=== PATIENT | female | born 1955 | race Caucasian/White ===

== ENCOUNTER 2016-09-12 09:45 | Inpatient (IN) | payer BC ==
[~2016-09-12] VITALS: Ht 162.6 cm; Wt 113.1 kg
[2016-09-22] MEDS ORDERED: ESTR42.5V VAGINAL (08:49)
[2016-09-22] MEDS ORDERED: OMEP20TA PO (08:49)
[2016-09-22] MEDS ORDERED: FLUT1SPR22 NASAL (08:49)
[2016-09-22] MEDS ORDERED: PYRI100T PO (08:49)
[2016-09-22] MEDS ORDERED: HYDR-3516 PO (08:49)
[2016-09-22] MEDS ORDERED: FERR1TAB6 PO (08:49)
[2016-09-22] MEDS ORDERED: HYDR200T3 PO (08:49)
--- NOTE | 2016-09-26 09:14 | MH ---
cc: ROBINA DOUGLASS DATE OF ADMISSION: 09/26/2016 ADMISSION DIAGNOSIS Right knee osteoarthritis. HISTORY This is a 61-year-old female with significant right knee pain. Investigative studies show evidence of moderate to extensive arthritis of the right knee. Despite conservative care, the patient is painful and symptomatic. She presents for surgical treatment. PAST MEDICAL HISTORY, SOCIAL HISTORY, FAMILY HISTORY, REVIEW OF SYSTEMS See attached notes. PHYSICAL EXAMINATION General: Average built female in moderate distress with her right knee. HEENT: Normocephalic, atraumatic. Pupils equal, round, reactive to light and accommodation. Extraocular motions intact. Neck: Supple. Chest: Clear. Heart: Regular rate and rhythm. Abdomen: Soft, nontender with normoactive bowel sounds. Musculoskeletal: Examination shows right knee pain with range of motion. Varus deformity. Crepitus with range of motion. Neurologic and Vascular Examination: Within normal limits. IMPRESSION Osteoarthritis of the right knee. PLAN Right total knee replacement arthroplasty. CONSENT There are risks with surgery including infection, bleeding, loss of motion, continued pain, need for further surgery, neurologic and vascular injury. The patient understands these issues and wishes to press on with the surgery as outlined above. MD SANDIE Roberts/TREVOR /10:53 PM /9:12 AM
[2016-09-26 10:35] VITALS: BP 137/87; PULSE 75; RESP 18; TEMP 98.9; O2SAT 96
[2016-09-26] MEDS ORDERED: LACTATED RINGER'S 1000 ML IV SCH (11:00)
[2016-09-26] MEDS: SODIUM CHLORID 0.9% 500 ML IV SCH ×2 (11:00→20:35)
[2016-09-26] MEDS ORDERED: METOPROLOL TARTRATE 25 MG TAB PO PRN (11:15)
[2016-09-26] MEDS ORDERED: VANCOMYCIN 1000 MG/NS 250 ML (for <70 kg) IV SCH ×2 (11:15)
[2016-09-26] MEDS ORDERED: ceFAZolin 2 GM PREMIX 50 ML IV SCH (11:15)
[2016-09-26] MEDS: POVIDONE IODINE 7.5% SCRUB 118 ML BOTTLE TOP SCH (11:15)
[2016-09-26] MEDS ORDERED: INSULIN HUMAN REGULAR 1,000 UNITS/10 ML VIAL SQ PRN (11:15)
[2016-09-26] MEDS ORDERED: MIDAZOLAM HCL 5 MG/5 ML VIAL ONE (12:06)
[2016-09-26] MEDS ORDERED: GENTAMICIN SULFATE 80 MG/2 ML VIAL ONE (12:37)
[2016-09-26] MEDS ORDERED: BUPIVACAINE HCL PF 0.5% 30 ML VIAL NB ONE (12:42)
[2016-09-26] MEDS ORDERED: DEXAMETHASONE SOD PHOS PF 10 MG/ML VIAL IV ONE (12:42)
[2016-09-26] MEDS ORDERED: ACETAMINOPHEN 1000 MG/100 ML VIAL IV ONE (13:36)
[2016-09-26] MEDS ORDERED: FAMOTIDINE 20 MG/2 ML VIAL ONE (13:37)
[2016-09-26] MEDS ORDERED: fentaNYL CITRATE 250 MCG/5 ML AMP ONE ×3 (13:37→15:37)
[2016-09-26] MEDS ORDERED: HYDROmorphone HCL PF 2 MG/ML VIAL ONE ×3 (13:37→15:37)
[2016-09-26] MEDS: SODIUM CHLORIDE 0.9% IV SCH (14:13)
[2016-09-26] MEDS: TRANEXAMIC ACID IV SCH (14:13)
[2016-09-26] MEDS ORDERED: NEOSTIGMINE 3 MG/3 ML SYR IV ONE (15:10)
[2016-09-26] MEDS ORDERED: PROPOFOL 200 MG/20 ML AMP IV ONE (15:10)
[2016-09-26] MEDS ORDERED: ONDANSETRON HCL 4 MG/2 ML VIAL IV PUSH ONE (15:10)
[2016-09-26] MEDS ORDERED: LACTATED RINGER'S 1000 ML INJ 1,000 ML IV ONE (15:10)
[2016-09-26] MEDS: EXPAREL PERI-ARTICULAR INJECTION (TOTAL VOL. 60 ML) P-ARTICULR SCH ×2 (15:18)
[2016-09-26] MEDS ORDERED: methylPREDNISolone SOD SUCC 125 MG/2 ML VIAL ONE (16:09)
--- NOTE | 2016-09-26 16:26 | PD.OP ---
cc: Jose Manuel Paulino MD Operative Report Date of Surgery: Sep 26, 2016 Preoperative Diagnosis: Osteoarthritis right knee, severe. Valgus deformity right knee Postoperative Diagnosis: Same Procedure: Right total knee replacement arthroplasty Anesthesia: Gen. Surgeon: Jose Manuel Paulino Associate Sales Representative(s): CHARLES Liu Operation and Findings: EBL: 150 cc INDICATION: This patient presents with long-standing arthritis of the knee. This patient also has a significant valgus deformity to the right knee. Attachment record documents conservative measures. The patient now presents for surgical treatment. NOTE: Leigha Liu PA-C was present for the entire surgical procedure as my certified ophthalmic assistant. In my medical opinion her skill and care was necessary for proper management of this patient. TOURNIQUET TIME: 62 minutes COMPANY: [employer] FEMUR: Size 3, cruciate retaining TIBIA: Size 3, fixed bearing PATELLA: 35 mm POLYETHYLENE INSERT: 9 mm PROCEDURE: This patient was brought the operating room and anesthetized in the supine position. The patient was positioned supine on the table. The tourniquet was placed about the thigh, and the leg was scrubbed with alcohol followed by Hibiclens followed by ChloraPrep and draped sterilely. A timeout was done, and antibiotics were given. After exsanguination the tourniquet was inflated to 250 mmHg. An anterior incision was made and a median parapatellar arthrotomy was performed. The patella was released laterally and subluxed allowing freehand cut of the patella which was then sized. A metal cap was placed over the exposed patellar surface for protection. A pilot boat operator hole was placed in the distal femur allowing a 4 valgus cut removing 10 mm from the distal femur. Anterior posterior and chamfer cuts were made. The posterior stabilize osteotomy was made. The attention was directed to the tibia. Retractors were positioned. The external alignment guide was used allowing the lateral tibia to be used as referencing guide and cut utilizing an oscillating saw taking care to avoid any injury to the surrounding soft tissues. This was sized properly. Trial reduction showed that the insert fit nicely. The patient had range of motion extension 0 flexion 120. A medial release was not necessary. We and obtaining a partial lateral release with high crusting of the iliotibial band and a partial release of the LCL. The bony surfaces prepared. On the back table 2 packets of methylmethacrylate were mixed. The components were cemented. Excess cement was removed. The tourniquet let down and hemostasis was controlled. The final plastic insert was inserted. Range of motion was the same as previously noted. A drain was brought through a separate stab incision. The arthrotomy was repaired with interrupted #1 Vicryl suture, subcutaneous tissue 2-0 Vicryl suture and skin with metallic miguel A sterile dressing was applied. Sponge counts, needle counts and instrument counts were all correct. The patient tolerated procedure well and was taken to recovery in satisfactory condition. FINDINGS: This patient had a moderate to severe fixed valgus deformity. The correction was satisfactory without a posterior stabilized component. Overall stability was felt be very good. Motion was very satisfactory. Jose Manuel Paulino MD Sep 26, 2016 16:26
[2016-09-26] MEDS ORDERED: MORPHINE SULFATE 30 MG/30 ML PCA IV SCH (16:30)
[2016-09-26] MEDS ORDERED: SODIUM CHLORIDE 0.9% FLUSH 5 ML FLUSH IVF PRN (16:30)
[2016-09-26] MEDS ORDERED: NALOXONE HCL 0.4 MG/ML AMP IV PRN (16:30)
[2016-09-26] MEDS ORDERED: ALUMINUM/MAGNESIUM/SIMETH 30 ML CUP PO PRN (16:30)
[2016-09-26] MEDS ORDERED: MISCELLANEOUS NURSING INFORMATION XX PRN (16:30)
[2016-09-26] MEDS ORDERED: FLUTICASONE PROPIONATE 50 MCG/ACT 16 GM NASAL SPRAY NASAL PRN (16:30)
[2016-09-26] MEDS ORDERED: MORPHINE SULFATE 8 MG/ML INJ IV PUSH PRN (16:30)
[2016-09-26] MEDS ORDERED: TEMAZEPAM 15 MG CAP PO PRN (16:30)
[2016-09-26] MEDS ORDERED: MAGNESIUM HYDROXIDE SUSP 30 ML CUP PO PRN (16:30)
[2016-09-26] MEDS ORDERED: ONDANSETRON HCL 4 MG/2 ML VIAL IVP PRN (16:30)
[2016-09-26] MEDS ORDERED: BISACODYL 10 MG SUPP PR PRN (16:30)
[2016-09-26] MEDS ORDERED: ACETAMINOPHEN/HYDROcodone 325 MG/7.5 MG TAB PO PRN (16:30)
[2016-09-26] MEDS ORDERED: Post-op Orders (for Pharmacy) MISC XX ONE (16:30)
[2016-09-26] MEDS ORDERED: HYDR-3580 PO (16:34)
[2016-09-26] MEDS ORDERED: XARE10TA PO (16:34)
[2016-09-26] MEDS ORDERED: *morphine SULFATE 8 MG/ML PERIprocedure ONLY ONE ×3 (16:55→17:11)
[2016-09-26] MEDS: LACTATED RINGER'S 1000 ML INJ 1,000 ML IV SCH ×2 (17:05→20:40)
[2016-09-26] MEDS ORDERED: DO NOT ADM ANY ANTICOAGULANT DRUGS XX PRN (17:15)
[2016-09-26] MEDS ORDERED: *HYDROmorphone PF 1 MG VIAL PERIprocedural Use ONLY ONE (17:17)
--- NOTE | 2016-09-26 17:37 | RADRPT ---
EXAM DATE/TIME: 09/26/2016 16:58 [facility] COMPARISON: No previous studies available for comparison. INDICATIONS : Right knee replacement. MEDICAL HISTORY : Gastroesophageal reflux disease. SURGICAL HISTORY : None. ENCOUNTER: Initial ACUITY: 1 day PAIN SCORE: 6/10 LOCATION: Right entire knee. FINDINGS: Two view examination of the right knee demonstrates a total knee arthroplasty. The components are wally ropriately positioned without fracture. Suprapatellar drain is in place.. CONCLUSION: Appropriate postoperative appearance of the right knee status post total arthroplasty. Sanket Jewell MD on September 26, 2016 at 17:35 Board Certified Radiologist. This report was verified electronically.
[2016-09-26 20:16] VITALS: BP 116/55; PULSE 70; RESP 20; TEMP 95.7; O2SAT 93
[2016-09-26] MEDS: SODIUM CHLORIDE 0.9% FLUSH 5 ML FLUSH IVF SCH (20:41)
[2016-09-26] MEDS: PCA - TOTAL MG MORPHINE DELIVERED PER SHIFT SCH (22:00)
[2016-09-27] VITALS (7 sets, daily range): BP systolic 105–118; BP diastolic 53–64; PULSE 74–84; RESP 16–19; TEMP 97.2–98.5; O2SAT 94–97
[2016-09-27] MEDS: PCA - TOTAL MG MORPHINE DELIVERED PER SHIFT SCH (06:00)
[2016-09-27 06:52] LABS: HEMATOCRIT 29.5 % (35.0-46.0); REVIEW FLAG FINAL
[2016-09-27] MEDS: HYDROXYCHLOROQUINE SULFATE 200 MG TAB PO SCH (08:03)
[2016-09-27] MEDS: PANTOPRAZOLE SOD 20 MG DELAYED RELEASE TAB PO SCH (08:03)
[2016-09-27] MEDS: SODIUM CHLORIDE 0.9% FLUSH 5 ML FLUSH IVF SCH ×2 (08:04→20:11)
[2016-09-27] MEDS: POVIDONE IODINE 7.5% SCRUB 118 ML BOTTLE TOP SCH (11:15)
[2016-09-27] MEDS: TRANEXAMIC ACID IV SCH (12:00)
[2016-09-27] MEDS: EXPAREL PERI-ARTICULAR INJECTION (TOTAL VOL. 60 ML) P-ARTICULR SCH ×2 (12:00)
[2016-09-27] MEDS: SODIUM CHLORIDE 0.9% IV SCH (12:00)
--- NOTE | 2016-09-27 13:22 | HHI.FF ---
Face to Face Verification Diagnosis: (1) Right knee pain (2) Osteoarthritis of right knee Physical Therapy Gait training, Safety evaluation Knee: Total knee, Protocol: Right, Full weight bearing Canvas Knee Splint: When in bed & 2 pillows btw thighs Right LE Weight Bearing: WB as tolerated Additional Instructions PT 5 days/wk for 2 weeks. WBAT RLE. TKA protocol. CKS when in bed for 3 weeks. CPM twice daily 0-70 with goal of 100 flexion. Nursing RN Days per Week: 2 x Week(s): 1 Nursing: Other Dressing Changes: Do not change dressing Additional Instructions Vitals assessment. Dressing assessment - do not change unless saturated. Ok to shower pod#5 if kept sealed and dry. I have seen patient Wendy Li on 09/27/16. My clinical findings support the need for the requested home health care services because: Limited ability to care for self High risk of falls I certify that my clinical findings support that this patient is homebound because: Post-op weakness Unsteady gait/balance Rasheeda Maier Sep 27, 2016 13:22
[2016-09-27] MEDS ORDERED: CPMMACHINE (13:23)
[2016-09-27] MEDS: ACETAMINOPHEN/HYDROcodone 325 MG/7.5 MG TAB PO PRN ×3 (13:59→22:36)
[2016-09-27] MEDS: RIVAROXABAN 10 MG TAB PO SCH (16:21)
[2016-09-27] MEDS: LACTATED RINGER'S 1000 ML INJ 1,000 ML IV SCH ×2 (18:00→20:11)
[2016-09-27] MEDS: MAGNESIUM HYDROXIDE SUSP 30 ML CUP PO SCH (20:10)
[2016-09-27] MEDS: MULTIVITAMINS/MINERALS THERAPEUTIC TAB PO SCH (20:10)
[2016-09-27] MEDS: DOCUSATE SODIUM 100 MG CAP PO SCH (20:10)
[2016-09-27] MEDS ORDERED: SENNOSIDES 8.6 MG TAB PO SCH (21:00)
--- NOTE | 2016-09-27 21:18 | PD.ORT.PN ---
Subjective Subjective Remarks Seen at lunchtime today. Right knee pain but controlled with pain meds. Moderate aching. No new CP, abd pain or SOB. Objective Vitals Vital Signs Date Time Temp Pulse Resp B/P Pulse Ox O2 Delivery O2 Flow Rate FiO2 09/27/16 16:33 97.9 81 16 112/64 96 09/27/16 12:00 97.4 76 16 118/64 97 09/27/16 07:43 98.0 79 16 105/58 95 09/27/16 07:35 Room Air 09/27/16 06:00 17 09/27/16 04:13 98.2 76 19 113/58 96 09/27/16 00:12 97.2 74 19 109/53 97 09/26/16 22:00 17 I/O 09/26/16 09/26/16 09/26/16 09/27/16 09/27/16 09/27/16 07:00 15:00 23:00 07:00 15:00 23:00 Intake Total 2176 ml 1549 ml 1414 ml Output Total 883 ml 1670 ml 90 ml Balance 1293 ml -121 ml 1324 ml Intake Oral 270 ml 720 ml 980 ml IV Total 406 ml 829 ml 434 ml Other 1500 ml Output Urine Total 650 ml 1450 ml Drainage Total 83 ml 220 ml 90 ml Estimated Blood Loss 150 ml # Voids 3 # Bowel Movements 0 0 Result Diagram: 09/27/16 0620 Objective Remarks Sitting up in bed, NAD VSS RLE Dressing intact, drain in place, mild swelling, no erythema thigh and calf supple, neg homans +motor at, +sens, +nvi Assessment & Plan Ortho Post Op Day #: 1 Problem List: Assessment and Plan pod#1 s/p R TKA D/C KNOT BORER - change to po pain meds. D/c right knee drain if output less than 300cc. Hold dressing changes unless saturated. PT - WBAT RLE. TKA protocol. CPM bid. Xarelto 10mg qd D/C planning, likely home w [facility] or [facility]. DME written. Jose Manuel Paulino MD Sep 27, 2016 21:18
[2016-09-28 00:30] VITALS: BP 112/66; PULSE 94; RESP 18; TEMP 99.3; O2SAT 96
[2016-09-28] MEDS: ACETAMINOPHEN/HYDROcodone 325 MG/7.5 MG TAB PO PRN ×3 (02:54→11:03)
[2016-09-28 08:00] VITALS: BP 116/75; PULSE 86; RESP 18; TEMP 98.8; O2SAT 93
[2016-09-28] MEDS: SODIUM CHLORIDE 0.9% FLUSH 5 ML FLUSH IVF SCH (09:00)
[2016-09-28] MEDS: MULTIVITAMINS/MINERALS THERAPEUTIC TAB PO SCH (09:04)
[2016-09-28] MEDS: HYDROXYCHLOROQUINE SULFATE 200 MG TAB PO SCH (09:04)
[2016-09-28] MEDS: MAGNESIUM HYDROXIDE SUSP 30 ML CUP PO SCH (09:04)
[2016-09-28] MEDS: PANTOPRAZOLE SOD 20 MG DELAYED RELEASE TAB PO SCH (09:04)
[2016-09-28] MEDS: DOCUSATE SODIUM 100 MG CAP PO SCH (09:04)
--- NOTE | 2016-09-28 09:26 | HHI.DCPOC ---
Discharge Care Plan Diagnosis: (1) Right knee pain (2) Osteoarthritis of right knee Your Health Problems Are: Incision/Drains Goals to Promote Your Health * To prevent worsening of your condition and complications * To maintain your health at the optimal level Directions to Meet Your Goals Take your medications as prescribed Follow your dietary instruction Follow activity as directed Keep your appointments as scheduled Take your immunizations and boosters as scheduled If your symptoms worsen call your PCP, if no PCP go to Urgent Care Center or Emergency Room Smoking is Dangerous to Your Health. Avoid second hand smoke Call the 24-hour hour crisis hotline for domestic abuse at Rasheeda Maier Sep 28, 2016 09:26
--- NOTE | 2016-09-28 09:29 | HHI.DS ---
Discharge Summary Admission Date Sep 26, 2016 at 10:21 Discharge Date: Sep 28, 2016 Admitting Diagnosis see below Diagnosis: (1) Right knee pain Diagnosis: Principal (2) Osteoarthritis of right knee Diagnosis: Principal Procedures Right total knee arthroplasty Brief History This is a 61 year old female patient with a long history of right knee pain. She sought out medical treatment when her function began to decline. Imaging studies were performed which showed moderate arthritis. She attempted conservative treatments but her ability to perform daily activities declined. Surgical treatment was recommended and she elected to move forward. CBC/BMP: 09/27/16 0620 Significant Findings Laboratory Tests Test 09/27/16 06:20 Hemoglobin 10.3 GM/DL (11.6-15.3) Hematocrit 29.5 % (35.0-46.0) PE at Discharge Sitting up in bed, NAD VSS RLE Dressing intact, drain in place, mild swelling, no erythema thigh and calf supple, neg homans +motor at, +sens, +nvi Hospital Course Surgical treatment was performed on the day of admission without complication. She recovered well in PACU and was transferred to the orthopaedic floor. Pain was controlled with IV and oral medications. DVT prophylaxis was initiated pod# 1. She was compliant with physical therapy and all precautions. After 2 days she was found to be stable and discharged home with home health care and instructed to continue PT and to pursue a high fiber diet. Pt Condition on Discharge: Stable Discharge Disposition: Disch w/ Home Health Serv Discharge Instructions Diet Instructions: As Tolerated, No Restrictions, High Fiber Diet Activities You Can Perform: Weight Bearing as Liya Activities to Avoid: Strenuous Activity Additional Activity Instruc.: TKA protocol New Medications: CPM-Continuous Passive Motion Machine (CPM-Continuous Passive Motion Machine) 1 Ea Device 1 EA .ROUTE DIRECTED #1 Ref 0 EA Hydrocodone-Acetaminophen (Hydrocodone-Acetaminophen) 7.5-325 mg Tab 1 TAB PO Q4H PRN PAIN LESS THAN 5 ON SCALE #50 TAB Rivaroxaban (Xarelto) 10 Mg Tab 10 MG PO Q24H Prevent Blood Clot #15 TAB Continued Medications: Estradiol Vaginal (Estrace Vaginal) 0.01% Cream 1 GM VAGINAL 2XWEEK Estrogen Supplements #1 Ref 0 TUBE Ferrous Gluconate (Ferate) 27 Mg Tab 2 TAB PO HS Nutritional Supplement Fluticasone Propionate (Nasal) (Allergy Nasal Disputanta 24 Ho) 50 Mcg/Act Spr 2 SPRAY NASAL DAILY PRN allergies Hydrocodone-Acetaminophen (Hydrocodone-Acetaminophen) 5-325 mg Tab 1 TAB PO Q12HR PRN PAIN Ref 0 TAB Hydroxychloroquine (Hydroxychloroquine) 200 Mg Tab 200 MG PO DAILY Takw with food rheumatoid arthritis #30 Ref 0 TAB Omeprazole (Omeprazole) 20 Mg Tab 20 MG PO DAILY Heartburn Management #30 Ref 0 TAB Pyridoxine (Vitamin B-6) 100 Mg Tab 100 MG PO DAILY Nutritional Supplement #30 Ref 0 TAB Rasheeda Maier Sep 28, 2016 09:29
--- NOTE | 2016-09-28 09:33 | PD.ORT.PN ---
Subjective Subjective Remarks Continues to have knee pain but 'better today'. No new radiating leg pain. Some lateral knee and thigh pain. Sensation good. urinating well. No other complaints. No CP or SOB. Ready for d/c. Objective Vitals Vital Signs Date Time Temp Pulse Resp B/P Pulse Ox O2 Delivery O2 Flow Rate FiO2 09/28/16 07:38 Room Air 09/28/16 00:30 99.3 94 18 112/66 96 09/27/16 22:19 94 09/27/16 19:55 98.5 84 17 118/58 94 09/27/16 16:33 97.9 81 16 112/64 96 09/27/16 12:00 97.4 76 16 118/64 97 I/O 09/27/16 09/27/16 09/27/16 09/28/16 09/28/16 09/28/16 07:00 15:00 23:00 07:00 15:00 23:00 Intake Total 1549 ml 1414 ml 960 ml 240 ml Output Total 1670 ml 90 ml Balance -121 ml 1324 ml 960 ml 240 ml Intake Oral 720 ml 980 ml 960 ml 240 ml IV Total 829 ml 434 ml Output Urine Total 1450 ml Drainage Total 220 ml 90 ml # Voids 3 3 2 # Bowel Movements 0 0 0 Result Diagram: 09/27/16 0620 Procedures Right total knee arthroplasty Objective Remarks Sitting up in bed, NAD VSS RLE Dressing intact, drain removed - site clean, mild swelling, no erythema thigh and calf supple, neg homans +motor at, +sens, +nvi Assessment & Plan Ortho Post Op Day #: 2 Problem List: (1) Right knee pain (2) Osteoarthritis of right knee Assessment and Plan pod#2 s/p R TKA PO pain meds as needed. Hold dressing changes unless saturated. Ok to change drain site only. PT - WBAT RLE. TKA protocol. CPM bid. Xarelto 10mg qd Ok to d/c home w c today after PT session. F/U in 2 weeks as scheduled. F2F and DME written. Rasheeda Maier Sep 28, 2016 09:33
[2016-09-28] MEDS: POVIDONE IODINE 7.5% SCRUB 118 ML BOTTLE TOP SCH (11:15)
[2016-09-28 11:38] VITALS: BP 137/73; PULSE 99; RESP 18; TEMP 98.7; O2SAT 93
[2016-09-28] MEDS: RIVAROXABAN 10 MG TAB PO SCH (15:01)
== END 2016-09-28 15:23 | disposition home health service (06) | DRG 470 ==
LOC: EDUNIT# 09-26 10:00 → HSDI 09-26 10:21 → N06B 09-26 18:34
PROVIDERS: ADMIT Orthopaedic Surgery Orthopaedic Surgery of the Spine; ATTEND Orthopaedic Surgery Orthopaedic Surgery of the Spine
PROC: 3E0T3CZ (ICD-10-PCS; 2016-09-26)
PROC: 0SRC0J9 Replacement of Right Knee Joint with Synthetic Substitute, Cemented, Open Approach (ICD-10-PCS; principal; 2016-09-26 13:51)
DX: M17.11 Unilateral primary osteoarthritis, right knee (principal); M06.9 Rheumatoid arthritis, unspecified; Z87.891 Personal history of nicotine dependence
CPT/HCPCS: 73560; 85014; 85018; 86850; 86890; 86900; 86901; 86920; 94150; C1776; C9290; J0131; J0690; J1100; J1170; J1580; J2250; J2270; J2405; J2710; J2930; J3010; J3370; J7050; J7120; L1830

== ENCOUNTER → 2016-09-22 | Outpatient (CLI) | payer BC ==
[~2016-09-22] MED LIST: BUPIVACAINE/EPINEPHRINE 0.5% PF 30 ML VIAL ONE; CPMMACHINE; ESTR42.5V VAGINAL; FERR1TAB6 PO; FLUT1SPR22 NASAL; HYDR-3516 PO; HYDR-3580 PO; HYDR200T3 PO; OMEP20TA PO; PYRI100T PO; XARE10TA PO; fentaNYL CITRATE 250 MCG/5 ML AMP ONE
== END ==
LOC: CPRE 08:10
PROVIDERS: ATTEND Orthopaedic Surgery Orthopaedic Surgery of the Spine
DX: Z01.810 Encounter for preprocedural cardiovascular examination (principal); Z01.812 Encounter for preprocedural laboratory examination; Z01.818 Encounter for other preprocedural examination; Z79.01 Long term (current) use of anticoagulants; M17.11 Unilateral primary osteoarthritis, right knee
CPT/HCPCS: J3010